=== PATIENT | female | born 1975 | race Caucasian/White ===

== ENCOUNTER 2019-12-21 12:40 | Inpatient (IN) | payer OTHER ==
[~2019-12-21] VITALS: Ht 180.3 cm; Wt 62.6 kg
--- NOTE | 2019-12-21 12:45 | NUR ---
Dr. Rivas at bedside for MSE
--- NOTE | 2019-12-21 12:47 | NUR ---
Patient ambulating with steady gait. A&O x4. c/o sternal chest pain that radiates to right arm. Patient states pain started [employer]. Patient states she fell last and landed on right side. no bruising noted. patient states that pain is aggrevated by movement.
[2019-12-21] MEDS ORDERED: ASPIRIN 81 MG TAB.CHEW PO ONE (13:00)
[2019-12-21] MEDS ORDERED: NITROGLYCERIN 0.4 MG/TAB BOTTLE SL ONE ×2 (13:00→13:11)
[2019-12-21 13:05] LABS: BASOPHILS # (AUTO) 0.1 K/uL (0.0-8.0); BASOPHILS % (AUTO) 0.6 % (0.0-2.0); EOSINOPHILS # (AUTO) 0.1 K/uL (0.0-0.7); HEMATOCRIT 45.1 % (31.2-41.9); HEMOGLOBIN 14.7 g/dL (10.9-14.3); LYMPHOCYTES # (AUTO) 2.5 K/uL (20.0-40.0); LYMPHOCYTES % (AUTO) 27.7 % (20.5-51.5); MEAN CORPUSCULAR HEMOGLOBIN 29.9 uug (24.7-32.8); MEAN CORPUSCULAR HGB CONC 33 g/dL (32.3-35.6); MEAN CORPUSCULAR VOLUME 91.5 fL (75.5-95.3); MONOCYTES # (AUTO) 0.5 K/uL (2.0-10.0); MONOCYTES % (AUTO) 5.4 % (0.0-11.0); NEUTROPHILS # (AUTO) 5.9 K/uL (1.8-8.9); NEUTROPHILS % (AUTO) 65.3 % (38.5-71.5); PLATELET COUNT (AUTO) 193 K/uL (179-408); RED BLOOD CELL COUNT(AUTO) 4.93 MIL/uL (3.63-4.92)
[2019-12-21] MEDS ORDERED: ASPIRIN 81 MG TAB.CHEW ONE (13:11)
[2019-12-21 13:12] LABS: POTASSIUM 3.8 mmol/L (3.5-5.1)
[2019-12-21] MEDS ORDERED: IOHEXOL 350 100 ML INFUS..BTL ONE (13:31)
[2019-12-21] MEDS ORDERED: SWABABLE VALVE TRANSFER SET EA MC ONE (13:31)
[2019-12-21] MEDS ORDERED: IV NORMAL SALINE 250 ML IV ONE (13:31)
[2019-12-21 14:15] LABS: *URINE HCG, QUAL NEG (NEGATIVE)
[2019-12-21 15:14] LABS: BILIRUBIN,DIRECT 0.3 mg/dL (0.0-0.2); BILIRUBIN,TOTAL 1.3 mg/dL (0.2-1.0)
--- NOTE | 2019-12-21 15:51 | NUR ---
Report given to Hoang SEGURA
--- NOTE | 2019-12-21 17:30 | NUR ---
Received this admission from ER per lu this 44 yo female with the chief complaint of chest pain with shortness of breath. Transferred to bed comfortably. Routine admission care rendered. Placed on tele SR. Awake, alert, oriented x 4, able to move all extremities on purpose. O2at 5L/NC with O2 sat of 100%. SOB on exertion and laying flat. Placed on high back rest. Dr. Moon informed of admission
[2019-12-21 17:36] VITALS: BP 115/73
[2019-12-21] MEDS ORDERED: ONDANSETRON 4 MG/2 ML VIAL IV PRN (19:00)
[2019-12-21] MEDS ORDERED: MORPHINE SULFATE 2 MG/1 ML DISP.SYRIN IV PRN (19:00)
[2019-12-21] MEDS ORDERED: HYDROCODONE/APAP 5-325MG TABLET PO PRN (19:00)
[2019-12-21] MEDS ORDERED: TEMAZEPAM 15 MG CAPSULE PO PRN (19:00)
[2019-12-21] MEDS ORDERED: ACETAMINOPHEN 325 MG TABLET PO PRN (19:00)
[2019-12-21] MEDS ORDERED: ALBUTEROL SULFATE 1.25 MG/3 ML NEBU NEB PRN (19:00)
--- NOTE | 2019-12-21 19:40 | NUR ---
PATIENT ALERT ORIENTED, NO SOB NO CHEST PAIN. PATIENT TELE MONITOR SINUS RHYTHM, PATIENT ON 5LPM NC FOR ASSIST, NO DESATURATION NOTED, CONT TO MONITOR.
[2019-12-21 20:15] VITALS: BP 104/56
[2019-12-22 00:12] VITALS: BP 91/41
[2019-12-22 04:12] VITALS: BP 91/53
--- NOTE | 2019-12-22 06:41 | NUR ---
PATIENT ALERT ORIENTED NO SOB NO CHEST PAIN, NO COMPLAIN OF PAIN, TELE MONITOR SINUS RHYTHM, CONT TO MONITOR.
[2019-12-22 06:45] LABS: BASOPHILS # (AUTO) 0.1 K/uL (0.0-8.0); BASOPHILS % (AUTO) 0.8 % (0.0-2.0); EOSINOPHILS # (AUTO) 0.1 K/uL (0.0-0.7); EOSINOPHILS % (AUTO) 1.5 % (0.0-7.0); HEMATOCRIT 39.2 % (31.2-41.9); HEMOGLOBIN 13.1 g/dL (10.9-14.3); LYMPHOCYTES % (AUTO) 20.5 % (20.5-51.5); MEAN CORPUSCULAR HEMOGLOBIN 30.4 uug (24.7-32.8); MEAN CORPUSCULAR HGB CONC 33 g/dL (32.3-35.6); MEAN CORPUSCULAR VOLUME 91.3 fL (75.5-95.3); MONOCYTES # (AUTO) 0.6 K/uL (2.0-10.0); MONOCYTES % (AUTO) 6.6 % (0.0-11.0); NEUTROPHILS # (AUTO) 6.8 K/uL (1.8-8.9); NEUTROPHILS % (AUTO) 70.6 % (38.5-71.5); PLATELET COUNT (AUTO) 181 K/uL (179-408); RED BLOOD CELL COUNT(AUTO) 4.29 MIL/uL (3.63-4.92); WHITE BLOOD COUNT (AUTO) 9.6 K/uL (3.8-11.8)
[2019-12-22] MEDS ORDERED: PANTOPRAZOLE SODIUM 40 MG TABLET.DR PO SCH (07:00)
[2019-12-22 07:19] LABS: BILIRUBIN,TOTAL 0.9 mg/dL (0.2-1.0); CREATININE 0.9 mg/dL (0.6-1.3); MAGNESIUM 1.9 mg/dL (1.8-2.4); PHOSPHOROUS 3.2 mg/dL (2.5-4.9); POTASSIUM 4.2 mmol/L (3.5-5.1); TOTAL PROTEIN, SERUM 6.8 g/dL (6.4-8.2)
[2019-12-22] MEDS ORDERED: ASPIRIN EC 81 MG TABLET.DR PO SCH (09:00)
[2019-12-22 12:00] VITALS: BP 93/56
[2019-12-22 16:34] VITALS: BP 99/68
--- NOTE | 2019-12-22 16:44 | NUR ---
Patient received resting in bed. Patient is not complaining of chest pain or shortness of breath at this time. She is on 3 L of oxygen and saturating well. IV in the left AC 20 gauge and is intact and patent. Safety precautions in place, bed in lowest position, and locked with alarm activated. Patient call light and personal belongings are within reach. Will continue to monitor and observe.
--- NOTE | 2019-12-22 16:51 | NUR ---
Patient picked up by ambulance and taken to [place] for a Cardiac CTA. Patient left in stable condition.
--- NOTE | 2019-12-22 18:00 | NUR ---
Patient is asking to be discharged, made MD aware.
--- NOTE | 2019-12-22 18:30 | NUR ---
Patient is resting in bed, she reports she wants to home. Made Dr Tran aware. No signs of distress at this time but patient is still on 3L of oxygen. IV is in tact and patent on left AC 20 gauge. Safety precautions are in place. Will endorse patient to the oncoming nurse.
[2019-12-22 20:00] VITALS: BP 91/55
--- NOTE | 2019-12-22 20:30 | NUR ---
PATIENT DISCHARGE HOME, [employer] BY VIA PRIVATE CAR. PATIENT WAS GIVEN DISCHARGE PAPER, AND TOOK ALL BELONGINS.
== END 2019-12-22 20:56 | disposition home or self-care (01) | DRG 200 ==
LOC: ER 12:40 → TELE3 16:45
PROVIDERS: ADMIT Internal Medicine; ATTEND Internal Medicine
DX: S27.0XXA Traumatic pneumothorax, initial encounter (principal); Q87.40 Marfan syndrome, unspecified; M94.0 Chondrocostal junction syndrome [Tietze]; S20.211A Contusion of right front wall of thorax, initial encounter; W01.190A Fall on same level from slipping, tripping and stumbling with subsequent striking against furniture, initial encounter; J45.909 Unspecified asthma, uncomplicated; W01.0XXA Fall on same level from slipping, tripping and stumbling without subsequent striking against object, initial encounter; Y93.9 Activity, unspecified; Y92.009 Unspecified place in unspecified non-institutional (private) residence as the place of occurrence of the external cause; E80.6 Other disorders of bilirubin metabolism; L30.9 Dermatitis, unspecified; J30.1 Allergic rhinitis due to pollen; I34.1 Nonrheumatic mitral (valve) prolapse
CPT/HCPCS: 36415; 70030-TC; 71045; 71250; 83735; 84100; 84703; 85025; 93005; 93307; A4663; G0378; J7050; Q9967